=== PATIENT | male | born 1965 | race African-American/Black ===

== ENCOUNTER 2017-06-24 18:33 | Emergency (ER) | payer OTHER, SELFPAY ==
[2017-06-24] MEDS ORDERED: Proparacaine 0.5% Opth 15 ML BOT ONE (19:20)
[2017-06-24] MEDS ORDERED: Fluorescein Opthalmic Strip ONE (19:20)
[2017-06-24] MEDS ORDERED: Ibuprofen 600 MG TAB ONE (19:23)
== END 2017-06-24 19:45 | disposition home or self-care (01) ==
LOC: SCSER 18:33
DX: S05.12XA Contusion of eyeball and orbital tissues, left eye, initial encounter (principal); F17.210 Nicotine dependence, cigarettes, uncomplicated; I10 Essential (primary) hypertension; Z79.899 Other long term (current) drug therapy; W20.8XXA Other cause of strike by thrown, projected or falling object, initial encounter
CPT/HCPCS: 99283

== ENCOUNTER 2017-07-01 15:55 | Emergency (ER) | payer OTHER ==
[2017-07-01] MEDS ORDERED: Fluorescein Opthalmic Strip ONE (16:12)
[2017-07-01] MEDS ORDERED: Proparacaine 0.5% Opth 15 ML BOT ONE (16:12)
== END 2017-07-01 16:45 | disposition home or self-care (01) ==
LOC: SCSER 15:55
DX: S05.12XA Contusion of eyeball and orbital tissues, left eye, initial encounter (principal); F17.210 Nicotine dependence, cigarettes, uncomplicated; I10 Essential (primary) hypertension; W20.8XXA Other cause of strike by thrown, projected or falling object, initial encounter; Y92.89 Other specified places as the place of occurrence of the external cause
CPT/HCPCS: 99283

== ENCOUNTER 2019-04-22 18:17 | Emergency (ER) | payer OTHER, SELFPAY | END 2019-04-22 18:56 | disposition home or self-care (01) | LOC: SCSER 18:17 | DX: M54.16 Radiculopathy, lumbar region (principal); F17.210 Nicotine dependence, cigarettes, uncomplicated; Z79.899 Other long term (current) drug therapy | CPT/HCPCS: 99283 ==

== ENCOUNTER 2019-07-08 05:13 | Emergency (ER) | payer SELFPAY | END 2019-07-08 05:40 | disposition home or self-care (01) | LOC: SCSER 05:13 | DX: K02.9 Dental caries, unspecified (principal); F17.210 Nicotine dependence, cigarettes, uncomplicated; I10 Essential (primary) hypertension; Z79.899 Other long term (current) drug therapy | CPT/HCPCS: 99281 ==